=== PATIENT | female | born 1995 | race Caucasian/White ===

== ENCOUNTER → 2019-04-04 | Outpatient (CLI) | payer MEDICAID, SELFPAY ==
[2016-04-30 15:21] VITALS: BMI 41.8
[2019-04-04 15:41] LABS: Hematocrit 54.1 % (37-47); Hemoglobin 17.8 g/dL (12.0-15.0)
[2019-04-04 16:07] LABS: Cholesterol 202 mg/dL (200); High Density Lipoprotein 29 mg/dL; Triglycerides 321 mg/dL; Very Low Density Lipoprotein 64 mg/dL (5-40)
== END | disposition home or self-care (01) ==
LOC: MTLAB 14:24
DX: F64.0 Transsexualism (principal)
CPT/HCPCS: 36415; 80061; 84403; 85014; 85018

== ENCOUNTER → 2020-09-29 09:50 | Outpatient (CLI) | payer MEDICAID, SELFPAY ==
[2020-09-29 09:17] VITALS: BMI 36.3
[2020-09-29 11:02] LABS: HIV - WCH Non-Reactive (Nonreactive); Syphilis Antibodies Non-reactive
[2020-10-01 07:07] LABS: HCV Quant. RNA PCR HCV Not Detected IU/mL (.)
[2020-10-01 08:43] LABS: HSV 2 IgG < 0.91 index (0.00-0.90)
[2020-10-01 20:25] LABS: HPV Reflexed? NOT INDICATED
[2020-10-02 04:11] LABS: Chlamydia By Nucleic Acid AMP Negative (Negative)
[2020-10-02 10:07] LABS: Gonococcus By Nucleic Acid AMP Negative (Negative)
== END ==
PROVIDERS: Referring Provider Nurse Practitioner Women's Health; Visit Provider Nurse Practitioner Women's Health
DX: N76.0 Acute vaginitis (principal); Z12.4 Encounter for screening for malignant neoplasm of cervix
CPT/HCPCS: 36415; 86695; 86696; 86703; 87070; 87205; 87491; 87522; 87591; 88175; G0145